=== PATIENT | male | born 1985 | race Caucasian/White ===

== ENCOUNTER 2020-04-08 20:51 | Emergency (ER) | payer OTHER ==
[2020-04-08 20:57] VITALS: TEMP 98.3; BMI 30.7
--- OUTSIDE RECORDS SUMMARY | 2020-04-08 21:15 | XMS ---
:1985 Author Organization [facility] Support Name Relationship Address Phone UE Unavailable Unavailable Unavailable FILI DAVID PARTNER [address] [place] [address] Re-disclosure Warning The records that you are about to access may contain information from federally- assisted alcohol or drug abuse programs. If such information is present, then the following federally mandated warning applies: This information has been disclosed to you from records protected by federal confidentiality rules (42 CFR part 2). The federal rules prohibit you from making any further disclosure of this information unless further disclosure is expressly permitted by the written consent of the person to whom it pertains or as otherwise permitted by 42 CFR part 2. A general authorization for the release of medical or other information is NOT sufficient for this purpose. The Federal rules restrict any use of the information to criminally investigate or prosecute any alcohol or drug abuse patient.The records that you are about to access may contain highly sensitive health information, the redisclosure of which is protected by Article 27-F of the [facility] Public Health law. If you continue you may haveaccess to information: Regarding HIV / AIDS; Provided by facilities licensed or operated by the [facility] Office of Mental Health; or Provided by the [facility] Office for People With Developmental Disabilities. If such information is present, then the following [facility] mandated warning applies: This information has been disclosed to you from confidential records which are protected by state law. State law prohibits you from making any further disclosure of this information without the specific written consent of the person to whom it pertains, or as otherwise permitted by law. Any unauthorized further disclosure in violation of state law may result in a fine or halfway sentence or both. A general authorization for the release of medical or other information is NOT sufficient authorization for further disclosure. Insurance Providers Payer name Policy type Policy ID Covered Covered green party's Policy P suhail / Coverage green party ID relationship to [employer] type bryant SOFIA [id number] 000 HEALTH NON CAP Results ID Date Data Source [id number] 01/17/2020 12:00:00 AM EDT [facility]AS[facility] Name Value Range Interpretation Code Description Data Asya rce(s) Supporting Document(s ) [id number] This lab was ordered by [facility] ([id number]) and reported by [facility] Procedure
--- NOTE | 2020-04-08 21:21 | PDOC ---
History of Present Illness - General Chief Complaint: Rectal Bleed Stated Complaint: BLOOD IN THE STOOL/ RT SIDE PAIN Time Seen by Provider: 04/08/20 21:07 - History of Present Illness Initial Comments: HPI: 04/08/20 21:20 35 yo M PMH HTN, gastric sleeve 3 years ago (went from 300 pounds to 220 pounds), alcohol use (half bottle of rum daily for the past two years), tobacco use (hookah daily), presenting with rectal bleeding. States that he has been having rectal bleeding for many months, worsening over the past two months, br ight red blood mixed with occasional black stools. Has been following with GI doctor outpatient (does not remember name), had an upper endoscopy on 04/04/2020 which reportedly did not show any cause, no polyps or ulcers. Notes that he is silvestre and has avoided anal sex for the past two weeks in the hopes that bleeding would improve, but has only worsened. States that he wakes up gasping and has trouble breathing. Has intermittent R sided abd pain and has been told his liver enzymes are high. Denies CP, SOB, [place], N/V, fevers/chills, urinary changes. Endorses alternating constipation and diarrhea. No family history of colon disease. PCP: Dr. Idalia Hurley, [facility] GI: Dr. Tr Reyes ROS: GENERAL/CONSTITUTIONAL: denies fever, chills, diaphoresis HEAD, EYES, EARS, NOSE AND THROAT: denies rhinorrhea, nasal congestion NEUROLOGIC: denies headache, dizziness, mental status changes CARDIOVASCULAR: denies chest pain, syncope, palpitations, lightheadedness RESPIRATORY: denies cough, shortness of breath, dyspnea with exertion GASTROINTESTINAL: endorses melena and hematochezia, also alternating constipation and diarrhea. Denies abdominal pain, abdominal distension, nausea, vomiting GENITOURINARY: denies dysuria, frequency, urgency MUSCULOSKELETAL: denies myalgia, arthralgia SKIN: denies rash, itching PE: Gen: well-developed, well-nourished, NAD Neuro: AAOX4, CN II-XII intact HEENT: atraumatic, normocephalic, dry mucous membranes Neck: trachea midline, supple CV: midly tachy in the 100s, regular rhythm, no murmurs, rubs, or gallops Pulm: CTA b/l, no wheezing Abd: soft, non-distended, non-tender MSK: full ROM, intact pulses Extr: no edema, no deformities Skin: warm, dry MDM: Concern for potential GI bleed, appears more likely to be lower than upper bleed. Possibly influenced by alcohol use, also has history of gastric sleeve. - CBC, CMP - EKG - stool for occult blood - PT/PTT - type and screen - Protonix - 1L LR - reassess 04/08/20 21:51 CBC unremarkable, stool for occult blood negative. Will f/u CMP, plan to dc for further outpatient management 04/08/20 22:35 AST 230, ALT 152, consistent with alcohol use. CMP otherwise unconcerning. Will dc for further outpatient management. Past History - Medical History Allergies/Adverse Reactions: Allergies Allergy/AdvReac Type Severity Reaction Status Date / Time No Known Allergies Allergy Verified 04/08/20 21:27 COPD: No - Surgical History Abdominal Surgery: Yes (GASTRIC SLEEVE) - Psycho-Social/Smoking History Smoking History: Never smoked - Substance Abuse Hx (Audit-C & DAST Scrn) How often the patient has a drink containing alcohol: 4 0r more times/wk Number of drinks the patient has on a typical day: 1 or 2 How often the patient has six or more drinks on one occasion: Never Score: In Men: 4 or > Positive; In Women: 3 or > Positive: 4 Screen Result (Pos requires Nsg. Audit-10AR): Positive In the last yr the pt used illegal drug/Rx for NonMed reason: No Score: Yes response is considered Positive: 0 Screen Result (Positive result requires Nsg. DAST-10): Negative *Physical Exam - Vital Signs Last Vital Signs Temp Pulse Resp BP Pulse Ox 98.3 F 120 H 18 161/107 H 99 04/08/20 20:53 04/08/20 20:53 04/08/20 20:53 04/08/20 20:53 04/08/20 20:53 ED Treatment Course - LABORATORY CBC & Chemistry Diagram: 04/08/20 21:30 04/08/20 21:30 Discharge - Discharge Information Problems reviewed: Yes Clinical Impression/Diagnosis: Rectal bleeding, Alcohol use Condition: Stable Disposition: HOME - Admission No - Follow up/Referral Referrals: Rome Stiles MD [Primary Care Provider] - - Patient Discharge Instructions Patient Printed Discharge Instructions: DI for Rectal Bleeding, DI for Alcohol Use Disorder Additional Instructions: You were seen with reported rectal bleeding. Your labs showed signs of alcohol use, but no concerning signs of bleeding. It is very important to decrease or el iminate your alcohol use for the sake of your health. Please follow up with your primary care doctor and your GI doctor within one week. Return to the ER if you develop new or worsening symptoms. - Post Discharge Activity
[2020-04-08] MEDS ORDERED: LACTATED RINGERS SOLUTION 1,000 ML/1,000 ML INFUS.BAG IV STA (21:24)
[2020-04-08] MEDS ORDERED: PANTOPRAZOLE SODIUM 40 MG VIAL IVPUSH ONE (21:24)
[2020-04-08] MEDS ORDERED: PANTOPRAZOLE SODIUM 40 MG/100 ML BAG IVPB ONE (21:53)
[2020-04-08 21:56] LABS: EOS % 1.3 % (0-4.5); HEMATOCRIT 45.4 % (35.4-49); MCH 33.3 pg (25.7-33.7); MCHC 35.3 g/dl (32.0-35.9); MEAN CELL VOLUME 94.4 fl (80-96); MONO % 5.1 % (3.8-10.2); NEUT % 74.6 % (42.8-82.8); PLATELET COUNT 231 K/MM3 (134-434); WHITE BLOOD COUNT 9.9 K/mm3 (4.0-10.0)
[2020-04-08 22:09] LABS: INR 1.03 (0.83-1.09); PROTHROMBIN TIME (PATIENT) 12.6 SEC (9.7-13.0)
[2020-04-08 22:11] LABS: ACTIVATED PTT 33.1 SECONDS (25.2-36.5)
[2020-04-08 22:24] LABS: POTASSIUM 3.6 mmol/L (3.5-5.1)
[2020-04-08 22:27] LABS: ALBUMIN 3.9 g/dl (3.4-5.0); BLOOD UREA NITROGEN 6.7 mg/dL (7-18); CALCIUM 8.8 mg/dL (8.5-10.1)
[2020-04-08 22:30] LABS: CREATININE 0.7 mg/dL (0.55-1.3)
[2020-04-08 22:32] LABS: BILIRUBIN,TOTAL 1.2 mg/dL (0.2-1); TOT PROT 8.2 g/dl (6.4-8.2)
[2020-04-08 22:56] VITALS: BP 131/80; PULSE 89
--- NOTE | 2020-04-08 22:56 | PDOC ---
Documentation entered by Aleida Kurtz SCRIBE, acting as scribe for Umm Lanza MD. Umm Lanza MD: This documentation has been prepared by the Tomi virgen Xhesika, SCRIBE, under my direction and personally reviewed by me in its entirety. I confirm that the documentation accurately reflects all work, treatment, procedures, and medical decision making performed by me. Attending Attestation - Resident Resident Name: Noelle Clemons - ED Attending Attestation I have performed the following: I have examined & evaluated the patient, The case was reviewed & discussed with the resident, I agree w/resident's findings & plan, Exceptions are as noted - HPI HPI: 04/08/20 21:11 The patient is a 35y/o M with a PMH of gastric sleeve (3 years ago), alcohol use (half bottle of rum daily) who presents to the ED for several months of rectal bleeding, worse the past 2 months. Pt states he had an upper endoscopy which was unremarkable. Pt states he follows up with GI outpatient. Pt states he did not have sex for the past 2 weeks hoping his symptoms would subside but instead they progressively got worse. Pt denies SOB, CP, headache or dizziness. Denies fevers, chills, cough, N/V/D. Allergies: NKDA - Physicial Exam PE: 04/08/20 22:01 GENERAL: Awake, alert, and fully oriented, in no acute distress HEAD: No signs of trauma EYES: PERRLA, EOMI, sclera anicteric, conjunctiva clear ENT: Auricles normal inspection, hearing grossly normal, nares patent, oropharynx clear without exudates. Moist mucosa NECK: Normal ROM, supple, no lymphadenopathy, JVD, or masses LUNGS: Breath sounds equal, clear to auscultation bilaterally. No wheezes, and no crackles HEART: +tachy, no murmurs, rubs or gallops ABDOMEN: Soft, nontender, normoactive bowel sounds. No guarding, no rebound. No masses EXTREMITIES: Normal range of motion, no edema. No clubbing or cyanosis. No cords, erythema, or tenderness NEUROLOGICAL: Cranial nerves II through XII grossly intact. Normal speech, normal gait SKIN: Warm, Dry, normal turgor, no rashes lesions noted. - Medical Decision Making 10/18/20 22:06 rectal exam was negative for melena or any active rectal bleeding, he denies fever,chills,nausea,vomiting,dizziness or chest pain 04/08/20 22:10 The pt recently had an endoscopy and saw his [employer] supervisor last Thursday04/08/20 22:41 pt informed that his LFTs are elevated and he has been told this recently by his PCP. He admits that he drinks alcohol daily He is already scheduled for an outpt ct scan and then colonoscopy -he is not anemic his labs are unremarkable imp rectal blood plan Continue outpatient work up 04/08/20 22:55 Discharge - Discharge Information Problems reviewed: Yes Clinical Impression/Diagnosis: Rectal bleeding, Alcohol use Condition: Stable Disposition: HOME - Follow up/Referral Referrals: Rome Stiles MD [Primary Care Provider] - - Patient Discharge Instructions Patient Printed Discharge Instructions: DI for Alcohol Use Disorder, DI for Rectal Bleeding Additional Instructions: You were seen with reported rectal bleeding. Your labs showed signs of alcohol use, but no concerning signs of bleeding. It is very important to decrease or eliminate your alcohol use for the sake of your health. Please follow up with your primary care doctor and your GI doctor within one week. Return to the ER if you develop new or worsening symptoms. - Post Discharge Activity
== END 2020-04-08 22:56 | disposition home or self-care (01) ==
LOC: JER 20:51
PROC: 3E033GC Introduction of Other Therapeutic Substance into Peripheral Vein, Percutaneous Approach (ICD-10-PCS; principal; 2020-04-08)
PROC: 3E0337Z Introduction of Electrolytic and Water Balance Substance into Peripheral Vein, Percutaneous Approach (ICD-10-PCS; 2020-04-08)
DX: K62.5 Hemorrhage of anus and rectum (principal); F10.99 Alcohol use, unspecified with unspecified alcohol-induced disorder
CPT/HCPCS: 36415; 80053; 82272; 85025; 85610; 85730; 86850; 86900; 86901; 99284-25

== ENCOUNTER 2020-05-31 11:41 | Inpatient (IN) | payer OTHER ==
[2020-05-31 12:40] VITALS: BMI 30.7
[2020-05-31] MEDS ORDERED: MAGNESIUM CITRATE 300 ML BOTTLE PO PRN (12:49)
[2020-05-31] MEDS ORDERED: MAGNESIUM HYDROX 2400MG/30ML ORAL SUSPENSION 30 ML CUP PO PRN (12:49)
[2020-05-31] MEDS ORDERED: MAG HYDROX/AL HYDROX/SIMETH 30 ML UNIT-DOSE CUP PO PRN (12:49)
[2020-05-31] MEDS ORDERED: IBUPROFEN 400 MG TABLET (FP) PO PRN (12:49)
[2020-05-31] MEDS ORDERED: ONDANSETRON *ODT* 4 MG TABLET SL PRN (12:49)
[2020-05-31] MEDS ORDERED: ACETAMINOPHEN 325 MG TABLET (FP) PO PRN ×2 (12:49)
[2020-05-31] MEDS ORDERED: LORazepam 1 MG TABLET PO PRN (12:49)
[2020-05-31] MEDS ORDERED: MENTHOL/PHENOL 1 EACH UD MM PRN (12:49)
[2020-05-31] MEDS ORDERED: BISMUTH SUBSALICYLATE 262 MG/15 ML BTL PO PRN (12:49)
[2020-05-31] MEDS: METHOCARBAMOL 500 MG TABLET PO PRN (13:43)
[2020-05-31] MEDS ORDERED: hydrOXYzine PAMOATE 25 MG CAPSULE (FP) PO SCH (14:00)
[2020-05-31] MEDS ORDERED: hydrOXYzine PAMOATE 25 MG CAPSULE (FP) PO PRN (15:39)
[2020-05-31] MEDS: LORazepam 2 MG TABLET PO SCH ×2 (17:59→22:20)
[2020-05-31 18:02] LABS: POTASSIUM 3.3 mmol/L (3.5-5.1)
[2020-05-31 18:04] LABS: HEMATOCRIT 48.4 % (35.4-49); HEMOGLOBIN 16.7 GM/dL (11.7-16.9); MCHC 34.6 g/dl (32.0-35.9); MEAN CELL VOLUME 95.4 fl (80-96); MEAN PLT VOLUME 8.2 fl (7.5-11.1); PLATELET COUNT 245 K/MM3 (134-434); RBC 5.08 M/mm3 (4.00-5.60); RDW 13.3 % (11.9-15.9); WHITE BLOOD COUNT 4.9 K/mm3 (4.0-10.0)
[2020-05-31 18:06] LABS: ALBUMIN 4.3 g/dl (3.4-5.0); BLOOD UREA NITROGEN 4.8 mg/dL (7-18); CALCIUM 8.8 mg/dL (8.5-10.1)
[2020-05-31 18:10] LABS: CREATININE 0.8 mg/dL (0.55-1.3)
[2020-05-31 18:11] LABS: BILIRUBIN,TOTAL 2.2 mg/dL (0.2-1); TOT PROT 8.9 g/dl (6.4-8.2)
[2020-05-31] MEDS: MELATONIN 5 MG TABLETS PO SCH (22:20)
[2020-05-31] MEDS: THIAMINE HCL 100 MG TABLET (FP) PO SCH (22:20)
[2020-06-01] MEDS: METHOCARBAMOL 500 MG TABLET PO PRN (04:21)
[2020-06-01] MEDS: LORazepam 2 MG TABLET PO SCH ×4 (06:19→22:09)
[2020-06-01] MEDS: PRENATAL VITAMINS W/ FOLIC ACID TABLET (FP) PO SCH (10:33)
[2020-06-01] MEDS: amLODIPine BESYLATE 10 MG TABLET (FP) PO SCH (10:33)
[2020-06-01] MEDS: POTASSIUM CHLORIDE TABS 20 MEQ TABLET.ER (FP) PO SCH (13:15)
[2020-06-01] MEDS: THIAMINE HCL 100 MG TABLET (FP) PO SCH (22:09)
[2020-06-01] MEDS: MELATONIN 5 MG TABLETS PO SCH (22:09)
[2020-06-02] MEDS: LORazepam 1 MG TABLET PO SCH ×2 (05:38→10:20)
[2020-06-02] MEDS: amLODIPine BESYLATE 10 MG TABLET (FP) PO SCH (10:20)
[2020-06-02] MEDS: POTASSIUM CHLORIDE TABS 20 MEQ TABLET.ER (FP) PO SCH (10:23)
[2020-06-02] MEDS: PRENATAL VITAMINS W/ FOLIC ACID TABLET (FP) PO SCH (10:23)
[2020-06-02 12:16] VITALS: BP 155/82; PULSE 102; TEMP 97.9
[2020-06-03] MEDS ORDERED: LORazepam 0.5 MG TABLET PO PRN
[2020-06-03] MEDS ORDERED: LORazepam 0.5 MG TABLET PO SCH (05:00)
[2020-06-04] MEDS ORDERED: LORazepam 0.5 MG TABLET PO ONE (05:00)
== END 2020-06-02 11:40 | disposition left against medical advice (07) | DRG 770 ==
LOC: YASAS 11:41 → Y6N 12:52
PROVIDERS: ADMIT Allergy & Immunology; ATTEND Allergy & Immunology
PROC: HZ2ZZZZ Detoxification Services for Substance Abuse Treatment (ICD-10-PCS; principal; 2020-05-31)
DX: F10.230 Alcohol dependence with withdrawal, uncomplicated (principal); R94.5 Abnormal results of liver function studies; Z91.013 Allergy to seafood; Z91.040 Latex allergy status; Z86.69 Personal history of other diseases of the nervous system and sense organs
CPT/HCPCS: 36415; 80053; 85027; 86780; C9803; U0003